=== PATIENT | female | born 1975 | race Caucasian/White ===

== ENCOUNTER 2023-01-18 23:34 | Emergency (ER) | payer BC, SELFPAY ==
[2023-01-18 23:36] VITALS: BP 160/53; PULSE 79; RESP 16; TEMP 36.6; O2SAT 96; BMI 24.3
[2023-01-19] VITALS: BP 134/70; PULSE 89; O2SAT 93
--- NOTE | 2023-01-19 00:01 | CT_ITS ---
PROCEDURE INFORMATION: Exam: CT Abdomen And Pelvis With Contrast Exam date and time: 01/19/2023 12:30 AM Age: 47 years old Clinical indication: Abdominal pain; Generalized; Patient HX: Abd pain/tenderness, radiates down to hips TECHNIQUE: Imaging protocol: Computed tomography of the abdomen and pelvis with contrast. Radiation optimization: All CT scans at this facility use at least one of these dose optimization techniques: automated exposure control; mA and/or kV adjustment per patient size (includes targeted exams where dose is matched to clinical indication); or iterative reconstruction. Contrast material: ISOVUE; Contrast volume: 75 ml; Contrast route: IV; REPORTING DATA: Count of CT and Cardiac NM exams in prior 12 months: This patient has received 0 known CTs and 0 known cardiac nuclear medicine studies in the 12 months prior to the current study. COMPARISON: No relevant prior studies available. FINDINGS: Lungs: LLL calcified granuloma. Liver: Unremarkable. Gallbladder and bile ducts: Cholecystectomy. Moderate extrahepatic ductal dilatation. Pancreas: Unremarkable. No ductal dilation. Spleen: No splenomegaly. Adrenal glands: No mass. Kidneys and ureters: Unremarkable. No significant hydronephrosis. Stomach and bowel: Apparent mild mural/fold thickening of several loops of proximal and mid small bowel. No associated inflammatory stranding. No obstruction. Appendix: Normal caliber. No inflammation. Intraperitoneal space: No significant fluid collection. No definite free air. Vasculature: Minimal atherosclerotic disease of aorta. No aneurysm. Lymph nodes: No pathologically enlarged lymph nodes. Urinary bladder: Unremarkable. Reproductive: Hysterectomy. Probable 2.0 cm follicle within LEFT ovary. Bones/joints: Degenerative changes of lower lumbar spine. No acute fracture. Soft tissues: Unremarkable. IMPRESSION: 1. Possible mild enteritis. Clinical correlation is needed. 2. Biliary ductal dilatation. Correlate with laboratory values. Consider MRCP.
[2023-01-19 00:39] LABS: Basophils # 0.2 K/mm3 (0-0.2); Basophils % 1.9 % (0.1-2.0); Eosinophils # 0.4 K/mm3 (0.0-0.4); Eosinophils % 4.3 % (0.1-12.0); Hematocrit 41.9 % (37.0-47.0); Hemoglobin 13.6 g/dL (12.2-16.2); Lymphocytes # 3.5 K/mm3 (0.7-4.5); Lymphocytes % 33.3 % (10-50); Mean Corpuscular HGB Conc 32.5 g/dL (31.8-35.4); Mean Corpuscular Hemoglobin 30.8 pg (27.0-31.2); Mean Corpuscular Volume 94.8 fl (81-99); Mean Platelet Volume 7.3 fl (7.4-10.4); Monocytes # 0.8 K/mm3 (0.1-1.0); Monocytes % 7.5 % (1.7-9.3); Neutrophils # 5.5 K/mm3 (1.8-7.8); Platelet Count 439 K/mm3 (142-424); Red Blood Count 4.42 M/mm3 (4.20-5.40); Red Cell Distribution Width 13.1 % (11.5-17.5); White Blood Count 10.4 K/mm3 (4.8-10.8)
--- NOTE | 2023-01-19 00:42 | [facility].EDGENADL ---
Discharge Plan Disposition Chief Complaint: Extremity Injury, Lower Referrals Follow up/Referrals: Provider,MD Angelique [Primary Care Provider] - See instructions Clinical Impressions Clinical Impression: Myalgia Print Language Print Language: Persian Discharge ED Provider: Benny Lowery General Adult HPI General Chief complaint: Extremity Injury, Lower Stated complaint: Hip pain Time Seen by Provider: 01/19/23 01:48 Mode of Arrival: Wheelchair Source of Information: Patient Limitations: No Limitations Description of Symptoms (Recalled from ER Triage Doc. by RN): pt c/o lt leg pain that started at hip and radiates nannette foot x 3 days. pt denies trauma or falling History of Present Illness HPI narrative: Patient presents to the emergency department with lower extremity pain, abdominal pain. She states that she has no injury to her legs. Denies any fever, chills, cough, congestion, nausea or vomiting. She does describe muscle pain and bone type of pain. She states it is worse with palpation. Denies any cough, congestion. She states that she has had weight gain and denies any weight loss. She states this has been worsening over the last 3 days. Related Data Allergies Allergy/AdvReac Type Severity Reaction Status Date / Time No Known Allergies Allergy Verified 01/19/23 00:11 [facility] Disclaimer: The information contained in this section may have been updated after the patient was seen, as this information can be updated by other users. Social History Smoking Status: Current every day smoker alcohol intake: never current occupational status: unemployed Travel in the last 8 weeks: None ROS Obtained: Yes All systems reviewed & no additional complaints except as documented Gastrointestinal Gastrointestingal: Reports abdominal pain Musculoskeletal Musculoskeletal: Reports myalgias and Reports other (Bone pain) Physical Exam General General appearance: alert, in no apparent distress and other (Uncomfortable appearing) Head Head exam: atraumatic and normocephalic Eye Eye exam: Present normal appearance, PERRL and EOMI Respiratory Respiratory exam: Present normal lung sounds bilaterally Cardiovascular Cardiovascular exam: Present regular rate, normal rhythm and normal heart sounds Abdominal Exam Abdominal exam: Present soft, tenderness, guarding and normal bowel sounds Extremities Exam Extremities exam: Present normal inspection and other (Patient has significant guarding with minimal movement of the bilateral lower extremities. She has pain extending from her thighs down to her ankles. No obvious swelling noted. Poor skin turgor. No edema) Neurological Exam Neurological exam: Present alert, oriented X3 and CN II-XII intact Psychiatric Psychiatric exam: Present other (Tearful) Skin Skin exam: Present warm and dry Medical Decision Making Medical Records Medical records reviewed: Yes I reviewed the patient's medical records. [place] Inquiry Pt receiving controlled substance: No [place] was queried for this patient: No Vital Signs: 01/18/23 23:36 01/19/23 00:00 Temperature 98 F Temperature Source Oral Pulse Rate 89 Pulse Rate [Right] 79 Respiratory Rate 16 Blood Pressure 134/70 Blood Pressure [Right Arm] 160/53 H Blood Pressure Mean [Right Arm] 88 02 Sat by Pulse Oximetry 96 93 L Oxygen Delivery Method Room Air Lab Data Lab results reviewed: Yes I reviewed the patient's lab results. Lab Results 01/19/23 00:30: WBC 10.4, RBC 4.42, Hgb 13.6, Hct 41.9, MCV 94.8, MCH 30.8, MCHC 32.5, RDW 13.1, Plt Count 439 H, MPV 7.3 L, Neut % (Auto) 53.0, Lymph % (Auto) 33.3, [place] % (Auto) 7.5, Eos % (Auto) 4.3, Baso % (Auto) 1.9, Neut # (Auto) 5.5, Lymph # (Auto) 3.5, [place] # (Auto) 0.8, Eos # (Auto) 0.4, Baso # (Auto) 0.2 01/19/23 00:30: Sodium 135 L, Potassium 4.7, Chloride 101, Carbon Dioxide 30, Anion Gap 8.7, BUN 17, Creatinine 0.60
[2023-01-19 00:44] LABS: Chloride 101 mmol/L (98-107)
[2023-01-19 00:45] LABS: Potassium 4.7 mmoL/L (3.5-5.1); Sodium 135 mmol/L (136-145)
[2023-01-19 00:47] LABS: Alanine Aminotransferase 22 U/L (12-78); Alkaline Phosphatase 101 U/L (38-126); Anion Gap 8.7 mEq/L (5-15); Aspartate Amino Transferase 27 U/L (14-36); Bilirubin,Total 0.2 mg/dl (0.2-1.3); Blood Urea Nitrogen 17 mg/dl (7-17); Calcium 8.7 mg/dl (8.4-10.2); Carbon Dioxide 30 mmol/L (22.0-30.0); Creatine Kinase 35 U/L (30-135); Creatinine Clearance Estimated 124 mL/min (50-200); Estimated Glomerular Filt Rate 107 ml/min (>60); GFR (African American) 129 ML/MIN (>60); Glucose 85 mg/dl (74-100)
[2023-01-19 00:48] LABS: Albumin/Globulin Ratio 1.5 (1.1-1.8); Globulin 2.7 g/dL (1.3-3.2); Total Protein,Serum 6.7 g/dl (6.3-8.2)
[2023-01-19 01:05] LABS: T4 (Thyroxine) 9.9 ug/dl (5.53-11.0)
[2023-01-19 01:18] LABS: Thyroid Stimulating Hormone 2.99 uIU/mL (0.465-4.68)
[2023-01-19 02:17] VITALS: BP 129/85; PULSE 84; RESP 16; TEMP 36.6; O2SAT 96
== END 2023-01-19 02:19 | disposition home or self-care (01) ==
PROVIDERS: Emergency Provider Emergency Medicine
DX: M25.552 Pain in left hip (principal); M79.605 Pain in left leg
CPT/HCPCS: 74177; 80053; 82550; 84436; 84443; 85025; 96374; 96375; 99284; 99285; J0131; Q9967